=== PATIENT | female | born 1980 | race Caucasian/White ===

== ENCOUNTER → 2016-10-16 | Outpatient (CLI) | payer OTHER ==
[~2016-10-16] MED LIST: FLX10 PO; IBUP600T44 PO; OXYC-57 PO; PRENTAB26 PO
== END | disposition home or self-care (01) ==
LOC: C.PAPS 11:49
PROVIDERS: ATTEND Obstetrics & Gynecology
DX: Z12.4 Encounter for screening for malignant neoplasm of cervix (principal)

== ENCOUNTER → 2017-10-30 | Outpatient (CLI) | payer OTHER | END | disposition home or self-care (01) | LOC: C.LABSPEC 16:31 | PROVIDERS: ATTEND Physician Assistant | DX: Z01.419 Encounter for gynecological examination (general) (routine) without abnormal findings (principal) ==

== ENCOUNTER → 2017-11-08 | Outpatient (CLI) | payer OTHER ==
[2017-11-08 15:09] LABS: HEP C IGG 13 YRS+OLDER_RFLX NEG (NEG)
== END | disposition home or self-care (01) ==
LOC: C.LAB1850 10:02
PROVIDERS: ATTEND Physician Assistant
DX: Z11.3 Encounter for screening for infections with a predominantly sexual mode of transmission (principal)

== ENCOUNTER → 2017-11-08 | Outpatient (CLI) | payer OTHER ==
--- NOTE | 2017-11-08 14:42 | MAMMOGRAPHY REPORT ---
BILATERAL DIGITAL DIAGNOSTIC MAMMOGRAM TOMOSYNTHESIS WITH CAD AND TARGETED BILATERAL ULTRASOUND: 11/08 CLINICAL HISTORY: 37-year-old woman presents after her provider felt a lump in the left breast. She reports the area is 3:00 to 4:00 left breast, 1 cm from the nipple. [employer] chart reports "right" breast and therefore both breasts were evaluated with targeted ultrasound. Patient denies skin thic kening, erythema or nipple discharge. No family history of breast cancer. TECHNIQUE: Bilateral breast tomosynthesis in addition to standard 2D mammography was performed. Curre nt study was also evaluated with a Computer Aided Detection (CAD) system. COMPARISON: No prior exams were available for comparison. BREAST COMPOSITION: The tissue of both breasts is heterogeneously dense, which may obscure small mas ses. FINDINGS: There is a benign rim calcification in the medial posterior left breast. No suspicious mas s, asymmetry, focal area of architectural distortion or cluster of microcalcifications is seen. Targeted ultrasound was performed in the area of lump pointed out by the patient, in the 3:00 to 4:00 left breast, 1-2 cm from the nipple. On ultrasound in this location, sonographically normal tissue is seen without a suspicious solid or cystic mass. For comparison purposes, the right breast at 3:00 and 4:00, 1 cm from the nipple were also evaluated on targeted ultrasound. Again, sonographically n ormal tissue is identified without a suspicious solid or cystic mass. IMPRESSION: ACR BI-RADS CATEGORY 2: BENIGN, TARGETED ULTRASOUND ACR BI-RADS CATEGORY 2: BENIGN There is no mammographic or targeted sonographic evidence of malignancy in the breasts. No suspiciou s mammographic or targeted sonographic abnormality is seen in the area of concern pointed out by the patient, in the 3:00 to 4:00 left breast. Therefore, clinical follow-up is recommended, as biopsy of a clinically suspicious mass should not be precluded by negative imaging. Otherwise, recommend akin al screening mammography, monthly age-appropriate. Approximately 10% of breast cancers are not detected with mammography. A negative mammographic report should not delay biopsy if a clinically suggestive mass is present. Tyesha Pena M.D. ay/:11/08/2017 09:55:50 [employer] Teacher: Esha MARS)([place]), [facility] letter sent: Normal 1/2 BI-RADS Code: ACR BI-RADS Category 2: Benign Ultrasound BI-RADS: ACR BI-RADS Category 2: Benign
== END | disposition home or self-care (01) ==
LOC: C.MAMM 08:59
PROVIDERS: ATTEND Physician Assistant
DX: N63.23 Unspecified lump in the left breast, lower outer quadrant (principal)